=== PATIENT | female | born 1980 | race Two or more races ===

== ENCOUNTER 2023-06-24 16:30 | Emergency (ER) | payer BC, OTHER ==
[~2023-06-24] VITALS: Ht 170.2 cm; Wt 116.0 kg
[2023-06-24 20:43] LABS: Alanine Aminotransferase 29 U/L (7-40); Albumin 4.4 g/dL (3.2-4.8); Alkaline Phosphatase 74 U/L (46-116); Anion Gap 9.2 (5-15); Aspartate Aminotransferase 15 U/L (13-40); BUN/Creatinine Ratio 8.5 (10.0-20.0); Bilirubin, Total 0.3 mg/dL (0.2-1.0); Blood Urea Nitrogen 8 mg/dL (9-23); Calcium 8.9 mg/dL (8.5-10.1); Carbon Dioxide 23.8 mmol/L (20-30); Chloride 107 mmol/L (98-107); Glucose 97 mg/dL (74-106); Potassium 4.1 mmol/L (3.5-5.1); Sodium 140 mmol/L (136-145); Total Protein 7.2 g/dL (5.7-8.2)
[2023-06-24 20:57] LABS: Basophils # (auto) 0 10 ^3/uL (0-0.2); Basophils % (auto) 0.3 % (0.0-2.0); Eosinophils # (auto) 0.1 10 ^3/uL (0-0.8); Eosinophils % (auto) 1.8 % (0.0-7.0); Hematocrit 38.6 % (36.0-46.0); Hemoglobin 12.9 g/dL (12.2-16.2); Lymphocytes # (auto) 2.2 10 ^3/uL (0.4-5.4); Lymphocytes % (auto) 35.9 % (10.0-50.0); Mean Corpuscular Hemoglobin 28.7 pg (28.0-32.0); Mean Corpuscular Hgb Conc. 33.4 g/dL (32.0-36.0); Mean Corpuscular Volume 85.8 fL (80.0-100.0); Monocytes # (auto) 0.4 10 ^3/uL (0-1.3); Neutrophils # (auto) 3.5 10 ^3/uL (1.6-8.6); Nucleated Red Blood Cells % 0.1 %; Red Cell Distribution Width 13.9 % (11.8-14.3); White Blood Cell 6.2 10^3/uL (4.4-10.8)
[2023-06-24] MEDS ORDERED: METH4PAK PO (21:21)
[2023-06-24 21:38] VITALS: BP 161/80; PULSE 77; RESP 17; TEMP 98.2; O2SAT 98
== END 2023-06-24 21:40 | disposition home or self-care (01) ==
LOC: ER 16:30
DX: K11.20 Sialoadenitis, unspecified (principal); J45.909 Unspecified asthma, uncomplicated
CPT/HCPCS: 36415; 70490; 80053; 85025

== ENCOUNTER 2023-11-28 07:05 | Emergency (ER) | payer BC ==
[~2023-11-28] VITALS: Ht 172.7 cm; Wt 116.8 kg
[~2023-11-28 07:05] MED LIST: METH4PAK PO
[2023-11-28 07:35] VITALS: BP 155/89; PULSE 94; RESP 16; TEMP 99.8; O2SAT 97
[2023-11-28] MEDS ORDERED: KETOROLAC TROMETH 60MG/2ML VIAL IM ONE (08:00)
[2023-11-28] MEDS ORDERED: TRAM50TA2 PO (08:49)
== END 2023-11-28 08:55 | disposition home or self-care (01) ==
LOC: ER 07:05
DX: M77.11 Lateral epicondylitis, right elbow (principal); J45.909 Unspecified asthma, uncomplicated; Z98.890 Other specified postprocedural states; Z79.899 Other long term (current) drug therapy
CPT/HCPCS: 96372; 99283; J1885